=== PATIENT | male | born 1955 ===

== ENCOUNTER 2020-10-04 08:11 | Day surgery (SDC) | payer BC ==
[~2020-10-04] VITALS: Ht 182.9 cm; Wt 129.0 kg
[~2020-10-04 08:11] MED LIST: ASPI325EC; AZIT250 PO; DOCU100 PO; HYDACE5 PO; HYDACE7.5L PO; HYDCHL25 PO; LISI10 PO; OXYACE5T PO; PROM25 PO
--- NOTE | 2020-10-04 08:59 | NUR ---
Ambulatory in Day SurgeryPatient states colon prep results clear. History, Chart, Medications and Allergies reviewed before start of procedure.Lungs clear T/O to Auscultation. Patient confirms NPO status and agrees with scheduled surgery. Patient States Post-Procedure ride home has been arranged.
--- NOTE | 2020-10-04 09:40 | NUR ---
10/04/20 0940 Rita Mitchell MONITOR INTACT WITH CONTINUOUS PULSE OXIMETRY AND INTERMITTENT BP.
--- NOTE | 2020-10-04 10:34 | NUR ---
Patient up to Ambulate independently. Gait steady. Discharge instructions reviewed with patient. Patient verbalizes understanding. Copy given to patient to take home. Discharged via wheelchair to private car for ride home WITH
== END 2020-10-04 12:00 | disposition home or self-care (01) ==
LOC: ORSCMMR 08:11 → ORD 09:00 → ORSCMMR 09:30 → ORD 09:30 → ORSCMMR 12:00
PROVIDERS: Internal Medicine Gastroenterology
PROC: 0DBM8ZX Excision of Descending Colon, Via Natural or Artificial Opening Endoscopic, Diagnostic (ICD-10-PCS; principal; 2020-10-04 09:30)
DX: Z12.11 Encounter for screening for malignant neoplasm of colon (principal); Z86.010 Personal history of colon polyps; D12.4 Benign neoplasm of descending colon; K63.89 Other specified diseases of intestine; E66.01 Morbid (severe) obesity due to excess calories; Z68.41 Body mass index [BMI] 40.0-44.9, adult; G47.33 Obstructive sleep apnea (adult) (pediatric)
CPT/HCPCS: 88305; J2704; J7120

== ENCOUNTER 2022-07-12 10:14 | Emergency (ER) | payer OTHER, BC ==
[~2022-07-12] VITALS: Ht 188 cm; Wt 136.1 kg
[2022-07-12] MEDS ORDERED: PROZAC2010 PO (10:23)
[2022-07-12 10:38] LABS: BASOPHILS ABSOLUTE AUTO 0.03 K/mm3 (0.00-0.23); BASOPHILS PERCENT AUTO 1 % (0-2); EOSINOPHILS ABSOLUTE AUTO 0.06 K/mm3 (0.00-0.68); EOSINOPHILS PERCENT AUTO 2 % (0-6); Hematocrit 47.7 % (37.0-53.0); IMMATURE GRAN ABSOLUTE AUTO 0.02 K/mm3 (0.00-0.10); IMMATURE GRAN PERCENT AUTO 1 % (0-1); LYMPHOCYTES ABSOLUTE AUTO 0.54 K/mm3 (0.84-5.20); LYMPHOCYTES PERCENT AUTO 14 % (21-46); MONOCYTES ABSOLUTE AUTO 0.46 K/mm3 (0.16-1.47); MONOCYTES PERCENT AUTO 12 % (4-13); Mean Corpuscular HGB Conc 33.5 g/dL (31.5-36.5); Mean Corpuscular Volume 81 fL (80-100); NEUTROPHILS ABSOLUTE AUTO 2.87 K/mm3 (1.96-9.15); NEUTROPHILS PERCENT AUTO 72 % (41-73); Platelet Count 165 K/mm3 (150-400); RDW Coefficient Variation 13.2 % (11.7-14.2); RDW Standard Deviation 38.6 fL (35.1-46.3); Red Blood Cell Count 5.92 M/mm3 (4.30-5.90); White Blood Cell Count 3.98 K/mm3 (4.00-11.30)
[2022-07-12 10:53] LABS: International Normalized Ratio 1.04; Prothrombin Time Results 10.9 Sec (9.7-11.5)
[2022-07-12 11:00] LABS: Albumin, Blood 3.9 g/dL (3.4-5.0); Albumin/Globulin Ratio 1.3 (0.8-1.8); Bilirubin, Total 0.5 mg/dL (0.1-1.0); Bun/Creatinine Ratio 14.6 (12.0-20.0); Calcium, Blood 9.6 mg/dL (8.5-10.1); Creatinine, Blood 0.89 mg/dL (0.60-1.20); Globulin, Blood 2.9 g/dL (2.2-4.0); Magnesium, Blood 2.2 mg/dL (1.6-2.4); Potassium, Blood 4.1 mmol/L (3.5-5.5); Prolactin 15.5 ng/mL (2.5-17.4); Total Protein, Blood 6.8 g/dL (6.4-8.2)
[2022-07-12 11:09] LABS: Base Excess Venous -2.7 mmol/L; Bicarbonate Venous 21.4 mmol/L (24.0-30.0); pH Blood Venous 7.26 (7.34-7.37)
[2022-07-12 11:35] LABS: Source, Urine Straight Cath
[2022-07-12 11:39] LABS: Appearance, Urine Clear (Clear); Bilirubin, Urine Neg (Neg); Blood, Urine 1+ (Neg); Color, Urine Yellow (P-Yellow); Glucose Qualitative, Urine Neg (Neg); Ketones, Urine Neg (Neg); Leukocyte Esterase, Urine Neg (Neg); Nitrite, Urine Neg (Neg); Protein, Urine 1+ (Neg); Urobilinogen, Urine NORM (Normal)
[2022-07-12 11:52] LABS: PCO2 Arterial 47.1 mmHg (35-45); PO2 Arterial 65.3 mmHg (80-100); pH Blood Arterial 7.39 (7.35-7.45)
[2022-07-12 11:57] LABS: Bacteria Few /hpf; Squamous Epithelial Cells Few /hpf (Few)
[2022-07-12 11:58] LABS: U Amphetamine Screen Not Detected; U Barbituate Screen Not Detected; U Benzodiazapine Screen Not Detected; U Buprenorphine Screen Not Detected; U Cannabinoids Screen Not Detected; U Cocaine Screen Not Detected; U Methadone Screen Not Detected; U Methamphetamine Screen Not Detected; U Opiates Screen Not Detected; U Oxycodone Screen Not Detected; U Phencyclidine Screen Not Detected; U Propoxyphene Screen Not Detected
[2022-07-12 14:45] VITALS: BP 114/77
== END 2022-07-12 15:15 | disposition short-term general hospital (02) ==
LOC: ER 10:14
PROVIDERS: Student in an Organized Health Care Education/Training Program
DX: G40.901 Epilepsy, unspecified, not intractable, with status epilepticus (principal); R41.82 Altered mental status, unspecified; G93.6 Cerebral edema; I10 Essential (primary) hypertension; G47.30 Sleep apnea, unspecified; Z88.1 Allergy status to other antibiotic agents
CPT/HCPCS: 31500; 36600; 51702; 70450; 71045; 80053; 81001; 82803; 83735; 84146; 85025; 85610; 85730; 93005; 93010; 94002; 94660; 96365-59; 96366-59; 96372-59; 96375-59; 99285-25; J1100; J1953; J2060; J2405; J2704; J3010; J7050

== ENCOUNTER → 2023-02-09 | Outpatient (CLI) | payer MEDICARE, OTHER ==
[~2023-02-09] MED LIST changes: +LACO50TA2 PO; +LACOSAMIDE100 M1 PO; +LEVO750 PO; +LEVOFLOXACIN750 MG PO; +MIRALAX11914 PO; +MONUROL3 GM PO; +PROZAC2010 PO; +PROZAC40 MG PO; +TAMS.4ER PO; +ZOFRAN8 MG PO
[2023-02-15 14:43] LABS: CALCIUM, URINE - PER 24H 498 mg/d (100-250); CALCIUM, URINE - PER VOLUME 23.7 mg/dL; CHLORIDE, URINE - PER 24H 242 mmol/d (140-250); CHLORIDE, URINE - PER VOLUME 115 mmol/L; CITRIC ACID, URINE - PER 24H 418 mg/d (320-1240); CITRIC ACID,URINE - PER VOLUME 199 mg/L; CREATININE, URINE - PER 24H 1890 mg/d (800-2100); CREATININE, URINE - PER VOLUME 90 mg/dL; HOURS COLLECTED 24 hr; MAGNESIUM, URINE - PER VOLUME 6.9 mg/dL; MAGNESIUM, URINE PER 24H 145 mg/d (12-199); OXALATE, URINE - PER 24H 34 mg/d (16-49); OXALATE, URINE - PER VOLUME 16 mg/L; PH, URINE 6.27 (5.00-7.50); PHOSPHORUS, URINE - PER 24H 1071 mg/d (400-1300); PHOSPHORUS, URINE - PER VOLUME 51 mg/dL; POTASSIUM, URINE - PER 24H 61 mmol/d (25-125); POTASSIUM, URINE - PER VOLUME 29 mmol/L; SODIUM, URINE - PER 24H 254 mmol/d (51-286); SODIUM, URINE - PER VOLUME 121 mmol/L; SULFATE, URINE - PER 24H 25 mmol/d (6-30); SULFATE, URINE - PER VOLUME 12 mmol/L; TOTAL VOLUME 2100 mL; URIC ACID, URINE - PER 24H 617 mg/d (250-750); URIC ACID, URINE - PER VOLUME 29.4 mg/dL; URINE SUPERSATURATION INTERP Abnormal; URINE SUPERSATURATION, CAHPO4 5.33; URINE SUPERSATURATION, CAOX 8.63; URINE SUPERSATURATION, UA CALC 0.25
== END ==
LOC: LAB SHORT 06:00 → LAB 06:00 → LAB FUT 12-30 17:40
PROVIDERS: Urology
DX: N20.0 Calculus of kidney (principal)
CPT/HCPCS: 81003; 81050; 82131; 82140; 82340; 82436; 82507; 82570; 83735; 83935; 83945; 84105; 84133; 84300; 84392; 84560

== ENCOUNTER 2023-08-28 09:52 | Emergency (ER) | payer OTHER ==
[~2023-08-28] VITALS: Ht 182.9 cm; Wt 127.0 kg
[~2023-08-28 09:52] MED LIST changes: +MEKINIST2 MG PO; +PROBIOTICS1 EACH; +SULTRIDS PO; +TAFINLAR75 MG PO
[2023-08-28 11:19] LABS: BASOPHILS ABSOLUTE AUTO 0.03 K/mm3 (0.00-0.23); BASOPHILS PERCENT AUTO 1 % (0-2); EOSINOPHILS ABSOLUTE AUTO 0.02 K/mm3 (0.00-0.68); EOSINOPHILS PERCENT AUTO 0 % (0-6); Hematocrit 45.5 % (37.0-53.0); Hemoglobin 15.2 g/dL (13.5-17.5); IMMATURE GRAN ABSOLUTE AUTO 0.02 K/mm3 (0.00-0.10); IMMATURE GRAN PERCENT AUTO 0 % (0-1); LYMPHOCYTES ABSOLUTE AUTO 0.77 K/mm3 (0.84-5.20); LYMPHOCYTES PERCENT AUTO 16 % (21-46); MONOCYTES ABSOLUTE AUTO 0.75 K/mm3 (0.16-1.47); MONOCYTES PERCENT AUTO 16 % (4-13); Mean Corpuscular HGB 28.5 pg (26.0-34.0); Mean Corpuscular HGB Conc 33.4 g/dL (31.5-36.5); Mean Corpuscular Volume 85 fL (80-100); Mean Platelet Volume 9.6 fL (9.1-12.4); NEUTROPHILS ABSOLUTE AUTO 3.25 K/mm3 (1.96-9.15); NEUTROPHILS PERCENT AUTO 67 % (41-73); NRBC ABSOLUTE 0.02 K/mm3 (0.00-0.02); NRBC Auto 0.4 /100 WBC (0.0-0.2); Platelet Count 166 K/mm3 (150-400); RDW Coefficient Variation 17.1 % (11.7-14.2); RDW Standard Deviation 50.5 fL (35.1-46.3); Red Blood Cell Count 5.33 M/mm3 (4.30-5.90); White Blood Cell Count 4.84 K/mm3 (4.00-11.30)
[2023-08-28 11:38] LABS: Albumin, Blood 3.4 g/dL (3.4-5.0); Albumin/Globulin Ratio 1.1 (0.8-1.8); Bilirubin, Total 0.4 mg/dL (0.1-1.0); Bun/Creatinine Ratio 26.9 (12.0-20.0); Calcium, Blood 9.8 mg/dL (8.5-10.1); Creatinine, Blood 0.78 mg/dL (0.60-1.20); Globulin, Blood 3.2 g/dL (2.2-4.0); Potassium, Blood 4.2 mmol/L (3.5-5.5); Total Protein, Blood 6.6 g/dL (6.4-8.2)
[2023-08-28 13:15] VITALS: BP 137/89
== END 2023-08-28 14:03 | disposition home or self-care (01) ==
LOC: ER 09:52
PROVIDERS: Student in an Organized Health Care Education/Training Program
DX: M25.561 Pain in right knee (principal); M25.511 Pain in right shoulder; I10 Essential (primary) hypertension; G47.30 Sleep apnea, unspecified; W18.30XA Fall on same level, unspecified, initial encounter; Z79.899 Other long term (current) drug therapy; Z88.1 Allergy status to other antibiotic agents; Z88.8 Allergy status to other drugs, medicaments and biological substances
CPT/HCPCS: 70450; 71046; 73030; 73562-RT; 80053; 85025; 93005; 93010; 99284-25